=== PATIENT | female | born 1985 | race Two or more races ===

== ENCOUNTER 2024-02-13 15:51 | Emergency (ER) | payer OTHER ==
[~2024-02-13] VITALS: Ht 162.6 cm; Wt 65.8 kg
[2024-02-13 16:59] LABS: HEMATOCRIT 35.5 % (36.0-45.00); MEAN CORPUSCULAR HEMOGLOBIN 31.2 pg (27.00-32.0); MEAN CORPUSCULAR HGB CONC 33.9 g/dl (32.0-36.0); PLATELET COUNT 413 K/uL (150-450); RED BLOOD COUNT 3.86 M/uL (4.00-6.00); RED CELL DISTRIBUTION WIDTH 13.8 % (11.5-14.5)
[2024-02-13 17:27] LABS: CALCIUM 9.4 mg/dL (8.5-10.1); CREATININE SERUM 0.89 mg/dL (0.55-1.02); GFR 70.98; POTASSIUM 3.79 mEq/L (3.5-5.1)
[2024-02-13 18:53] LABS: URINE APPEARANCE Cloudy; URINE BILIRRUBIN Negative (NEGATIVE); URINE BLOOD Negative; URINE COLOR Yellow; URINE GLUCOSE Negative (NEGATIVE); URINE KETONE Negative (NEGATIVE); URINE LEUKOCYTE Large; URINE NITRATE Negative; URINE PROTEIN Negative (NEGATIVE); URINE UROBILINOGEN 0.2 E.U./dl
[2024-02-13 18:55] LABS: URINE BACTERIA 1103.7 uL (0.0-1933); URINE EPITHELIAL CELLS 132.1 uL (0.0-38.8); URINE RBC 4.4 uL (0.0-20.8)
[2024-02-13 19:06] LABS: URINE YEAST MODERATE /hpf
== END 2024-02-13 21:56 | disposition home or self-care (01) ==
LOC: ER 15:53
PROVIDERS: Emergency Medicine
DX: R10.31 Right lower quadrant pain (principal); Z88.0 Allergy status to penicillin